=== PATIENT | female | born 1995 | race Hispanic/Latino ===

== ENCOUNTER 2017-12-14 00:11 | Observation (INO) | payer BC, MEDICAID ==
[~2017-12-14] VITALS: Ht 152.4 cm; Wt 77.1 kg
[~2017-12-14 00:11] MED LIST: ACET-66 PO; PREN1TAB89 PO; TERC20CR4 VG
[2017-12-14 01:06] LABS: APPEARANCE,URINE Clear (CLEAR); BILIRUBIN,URINE Negative (NEGATIVE); COLOR,URINE Yellow (YELLOW); GLUCOSE, URINE (UA) Negative (NEGATIVE); KETONES,URINE Negative (NEGATIVE); LEUKOCYTE ESTERASE ,URINE Negative (NEGATIVE); NITRATE,URINE Negative (NEGATIVE); OCCULT BLOOD,URINE Negative (NEGATIVE); PH,URINE 6.5 (5.0-8.0); PROTEIN,URINE Negative (NEGATIVE); UROBILINOGEN,URINE 0.2 mg/dL (0.2-1.0)
[2017-12-14 01:08] LABS: BASOPHILS % (AUTO) 0.2 % (0.0-5.0); EOSINOPHILS % (AUTO) 1.5 % (0.0-8.0); HEMATOCRIT 34.8 % (36-48); LYMPHOCYTES % (AUTO) 24.9 % (21.0-51.0); MEAN CORPUSCULAR HEMOGLOBIN 29.4 pg (27.0-33.0); MEAN CORPUSCULAR VOLUME 86.4 fL (79-99); MONOCYTES % (AUTO) 8.9 % (3.0-13.0); NEUTROPHILS % (AUTO) 64.5 % (40.0-77.0); PLATELET COUNT (AUTO) 208 K/uL (130-400); RED BLOOD CELL COUNT(AUTO) 4.03 MIL/uL (4.00-5.50); RED CELL DISTRIBUTION WIDTH 14.5 % (11.0-15.5); WHITE BLOOD COUNT (AUTO) 10.1 K/uL (4.8-10.8)
[2017-12-14] MEDS ORDERED: LACTATED RINGERS 1000ML 1,000 ML IV PRN (01:15)
[2017-12-14 01:24] LABS: INR 0.93 (0.85-1.15); PROTHROMBIN TIME 9.8 SEC (9.6-11.6)
[2017-12-14] MEDS ORDERED: ACETAMINOPHEN EXTRA STRENGTH 500 MG TABLET ONE (02:38)
[2017-12-14] MEDS ORDERED: ACETAMINOPHEN EXTRA STRENGTH 500 MG TABLET PO SCH (02:45)
== END 2017-12-14 08:20 | disposition home or self-care (01) ==
LOC: LDH 00:11
DX: O26.893 Other specified pregnancy related conditions, third trimester (principal); R10.2 Pelvic and perineal pain; M54.9 Dorsalgia, unspecified; Z3A.26 26 weeks gestation of pregnancy
CPT/HCPCS: 36415; 76805; 81003; 85025; 85378; 85384; 85610; 85730; G0378 ×9; J7120; 96360; 96361

== ENCOUNTER 2018-01-31 10:05 | Observation (INO) | payer BC, MEDICAID ==
[~2018-01-31] VITALS: Ht 152.4 cm; Wt 78.0 kg
[2018-01-31 11:00] VITALS: BP 113/60
== END 2018-01-31 11:21 | disposition home or self-care (01) ==
LOC: LDH 10:05
DX: O24.419 Gestational diabetes mellitus in pregnancy, unspecified control (principal); Z3A.33 33 weeks gestation of pregnancy
CPT/HCPCS: 59025; 76819; G0378 ×2

== ENCOUNTER 2018-02-10 10:38 | Observation (INO) | payer BC, MEDICAID ==
[~2018-02-10] VITALS: Ht 152.4 cm; Wt 78.0 kg
== END 2018-02-10 12:00 | disposition home or self-care (01) ==
LOC: LDH 10:38
PROVIDERS: ADMIT Specialist; ATTEND Specialist
DX: O24.419 Gestational diabetes mellitus in pregnancy, unspecified control (principal); Z3A.34 34 weeks gestation of pregnancy
CPT/HCPCS: 59025; 76819; G0378 ×2

== ENCOUNTER 2018-02-11 19:10 | Observation (INO) | payer BC, MEDICAID ==
[~2018-02-11] VITALS: Ht 152.4 cm; Wt 77.1 kg
[2018-02-11] MEDS ORDERED: LACTATED RINGERS 1000ML 1,000 ML IV PRN (19:54)
[2018-02-11 20:31] LABS: APPEARANCE,URINE Turbid (CLEAR); BILIRUBIN,URINE Negative (NEGATIVE); COLOR,URINE Yellow (YELLOW); GLUCOSE, URINE (UA) Negative (NEGATIVE); KETONES,URINE Negative (NEGATIVE); LEUKOCYTE ESTERASE ,URINE Negative (NEGATIVE); NITRATE,URINE Negative (NEGATIVE); OCCULT BLOOD,URINE Negative (NEGATIVE); PROTEIN,URINE Negative (NEGATIVE)
[2018-02-11 20:48] LABS: AMORPHOUS SEDIMENT,UR Moderate /LPF (None Seen); BACTERIA,URINE Few /HPF (None Seen); RBC,URINE None Seen /HPF (0-1); SQUAMOUS EPITHELIAL CELL,UR 0-2 /HPF (0-2); WBC,URINE None Seen /HPF (0-1)
[2018-02-11 20:49] LABS: AMPHET/METH SCREEN,URINE NEGATIVE (NEGATIVE); BARBITURATE SCREEN, URINE NEGATIVE (NEGATIVE); BENZODIAZEPINES SCREEN,URINE NEGATIVE (NEGATIVE); CANNABINOID SCREEN,URINE NEGATIVE (NEGATIVE); COCAINE SCREEN,URINE NEGATIVE (NEGATIVE); OPIATE SCREEN,URINE NEGATIVE (NEGATIVE); PHENCYCLIDINE SCREEN,URINE NEGATIVE (NEGATIVE)
[2018-02-11] MEDS ORDERED: MAGNESIUM SULFATE 1,000 ML IV PRN (21:01)
[2018-02-11] MEDS ORDERED: CALCIUM GLUCONATE 1 GM/10 ML VIAL IV PRN (21:15)
[2018-02-11] MEDS ORDERED: LORAZEPAM 2 MG/ML 1 ML VIAL IVP ONE (21:15)
[2018-02-11] MEDS ORDERED: MAGNESIUM 4GM PREMIX 100ML 100 ML IV SCH (21:15)
[2018-02-11] MEDS ORDERED: AMPICILLIN 2GM+NS 100ML 100 ML IV SCH (21:15)
[2018-02-11] MEDS: DEXAMETHASONE SOD PHOSPHATE 4 MG/ML 1ML VIAL IM SCH (21:42)
[2018-02-11 22:46] LABS: HEMATOCRIT 36.7 % (36-48); MEAN CORPUSCULAR HEMOGLOBIN 27.5 pg (27.0-33.0); MEAN CORPUSCULAR HGB CONC 33.6 g/dL (32.0-36.0); PLATELET COUNT (AUTO) 203 K/uL (130-400); RED BLOOD CELL COUNT(AUTO) 4.48 MIL/uL (4.00-5.50); RED CELL DISTRIBUTION WIDTH 15.4 % (11.0-15.5); WHITE BLOOD COUNT (AUTO) 9.7 K/uL (4.8-10.8)
[2018-02-12] MEDS: AMPICILLIN 1GM+NS 50ML 50 ML IV SCH ×3 (01:34→09:38)
[2018-02-12] MEDS: DEXAMETHASONE SOD PHOSPHATE 4 MG/ML 1ML VIAL IM SCH ×3 (03:38→15:25)
[2018-02-12 07:13] LABS: RAPID PLASMA REAGIN NONREACTIVE (NONREACTIVE)
[2018-02-12] MEDS ORDERED: ACETAMINOPHEN EXTRA STRENGTH 500 MG TABLET PO SCH (14:30)
[2018-02-13 07:35] LABS: HEPATITIS Bs ANTIGEN SCREEN P Negative (Negative)
== END 2018-02-12 15:25 | disposition home or self-care (01) ==
LOC: EDH 19:10 → LDH 19:11 → WSH 21:15
DX: O26.893 Other specified pregnancy related conditions, third trimester (principal); R42 Dizziness and giddiness; R10.9 Unspecified abdominal pain; O99.343 Other mental disorders complicating pregnancy, third trimester; F99 Mental disorder, not otherwise specified; Z87.891 Personal history of nicotine dependence; Z79.899 Other long term (current) drug therapy; Z3A.35 35 weeks gestation of pregnancy
CPT/HCPCS: 36415 ×2; 80305; 81001; 82947; 83735; 85027; 86592; 86701; 86850; 86900; 86901; 87340; 87390; 96360; 96361; 96365; 96366 ×2; 96368; 96372; 96375; 99283; A4314; G0378 ×20; J0290 ×4; J1100 ×4; J2060; J3475 ×2; J7120

== ENCOUNTER 2018-02-15 22:31 | Observation (INO) | payer BC, MEDICAID ==
[~2018-02-15] VITALS: Ht 152.4 cm; Wt 78.5 kg
[2018-02-15 23:12] LABS: APPEARANCE,URINE Cloudy (CLEAR); BILIRUBIN,URINE Negative (NEGATIVE); COLOR,URINE Yellow (YELLOW); GLUCOSE, URINE (UA) Negative (NEGATIVE); KETONES,URINE Negative (NEGATIVE); LEUKOCYTE ESTERASE ,URINE Trace (NEGATIVE); NITRATE,URINE Negative (NEGATIVE); OCCULT BLOOD,URINE Negative (NEGATIVE); PROTEIN,URINE Negative (NEGATIVE)
[2018-02-15 23:24] LABS: BACTERIA,URINE Rare /HPF (None Seen); RBC,URINE None Seen /HPF (0-1); SQUAMOUS EPITHELIAL CELL,UR Moderate /HPF (0-2); WBC,URINE None Seen /HPF (0-1)
[2018-02-15 23:31] LABS: AMPHET/METH SCREEN,URINE NEGATIVE (NEGATIVE); BARBITURATE SCREEN, URINE NEGATIVE (NEGATIVE); BENZODIAZEPINES SCREEN,URINE NEGATIVE (NEGATIVE); CANNABINOID SCREEN,URINE NEGATIVE (NEGATIVE); COCAINE SCREEN,URINE NEGATIVE (NEGATIVE); OPIATE SCREEN,URINE NEGATIVE (NEGATIVE); PHENCYCLIDINE SCREEN,URINE NEGATIVE (NEGATIVE)
[2018-02-15] MEDS ORDERED: LACTATED RINGERS 1000ML 1,000 ML IV SCH (23:45)
== END 2018-02-16 02:15 | disposition home or self-care (01) ==
LOC: EDH 22:31 → LDH 22:32
DX: O60.03 Preterm labor without delivery, third trimester (principal); O26.893 Other specified pregnancy related conditions, third trimester; R11.0 Nausea; Z3A.35 35 weeks gestation of pregnancy; Z87.891 Personal history of nicotine dependence; O99.343 Other mental disorders complicating pregnancy, third trimester; Z79.899 Other long term (current) drug therapy
CPT/HCPCS: 80305; 81001; 99283; G0378 ×4; J7120; 96360; 96361

== ENCOUNTER 2018-02-23 19:08 | Observation (INO) | payer BC, MEDICAID ==
[~2018-02-23] VITALS: Ht 152.4 cm; Wt 76.2 kg
[2018-02-23] MEDS ORDERED: LACTATED RINGERS 1000ML 1,000 ML IV PRN ×2 (19:30→22:47)
[2018-02-23 19:57] LABS: APPEARANCE,URINE Clear (CLEAR); BILIRUBIN,URINE Negative (NEGATIVE); COLOR,URINE Yellow (YELLOW); GLUCOSE, URINE (UA) Negative (NEGATIVE); KETONES,URINE Negative (NEGATIVE); LEUKOCYTE ESTERASE ,URINE Negative (NEGATIVE); NITRATE,URINE Negative (NEGATIVE); OCCULT BLOOD,URINE Negative (NEGATIVE); PH,URINE 6.5 (5.0-8.0); PROTEIN,URINE Negative (NEGATIVE)
[2018-02-23 20:26] VITALS: BP 90/52
[2018-02-23] MEDS ORDERED: NALOXONE HCL 0.4 MG/1 ML ML IV PRN (23:00)
[2018-02-23] MEDS ORDERED: EPHEDRINE SULFATE 50 MG/ML AMPULE IVP PRN (23:00)
[2018-02-23] MEDS ORDERED: ROPIVACAINE 0.2%200ML EPIDURAL 200 ML EP PRN (23:00)
[2018-02-23] MEDS ORDERED: AMPICILLIN 2GM+NS 100ML 100 ML IV SCH (23:00)
[2018-02-23] MEDS ORDERED: LACTATED RINGERS 500 ML 500 ML IV PRN (23:00)
[2018-02-23] MEDS ORDERED: BUTORPHANOL TARTRATE 2 MG/ML IVP PRN (23:00)
[2018-02-23 23:17] LABS: HEMATOCRIT 35.2 % (36-48); MEAN CORPUSCULAR HGB CONC 33.5 g/dL (32.0-36.0); MEAN CORPUSCULAR VOLUME 80.8 fL (79-99); NUCLEATED RED BLOOD CELLS 0.1 % (0.0-0.19); PLATELET COUNT (AUTO) 194 K/uL (130-400); RED BLOOD CELL COUNT(AUTO) 4.36 MIL/uL (4.00-5.50); RED CELL DISTRIBUTION WIDTH 15.6 % (11.0-15.5); WHITE BLOOD COUNT (AUTO) 9.2 K/uL (4.8-10.8)
[2018-02-23] MEDS ORDERED: AMPICILLIN 2GM+NS 100ML 100 ML IV ONE (23:32)
[2018-02-24] MEDS: AMPICILLIN 1GM+NS 50ML 50 ML IV SCH ×2 (03:21→07:45)
[2018-02-25 07:29] LABS: HEPATITIS Bs ANTIGEN SCREEN P Negative (Negative)
== END 2018-02-24 09:30 | disposition home or self-care (01) ==
LOC: EDH 19:08 → UNDOADMOB 19:29 → LDH 19:29 → INTOOBSV 22:47 → OBSVTOIN 22:47
DX: O42.913 Preterm premature rupture of membranes, unspecified as to length of time between rupture and onset of labor, third trimester (principal); O26.893 Other specified pregnancy related conditions, third trimester; R10.9 Unspecified abdominal pain; O99.89 Other specified diseases and conditions complicating pregnancy, childbirth and the puerperium; M54.9 Dorsalgia, unspecified; Z3A.35 35 weeks gestation of pregnancy
CPT/HCPCS: 36415; 59025; 76815; 81003; 82120; 82947; 85027; 86592; 86850; 86900; 86901; 87340; 96365; 96366; 99284; G0378 ×14; J0290 ×3; J7120